=== PATIENT | male | born 1975 | race African-American/Black ===

== ENCOUNTER 2022-02-22 13:32 | Emergency (ER) | payer BC, SELFPAY ==
[2022-02-22 13:36] VITALS: BP 145/101; PULSE 55; RESP 20; TEMP 36.5; O2SAT 100
[2022-02-22] MEDS: Ondansetron 4 MG/2 ML VIAL IVP (14:03)
[2022-02-22] MEDS: Normal Saline 1,000 ML 1000 ML IV (14:03)
[2022-02-22 14:11] LABS: Abs Immature Grans 0.01 10^3/uL (0.0-0.06); Absolute Basophil Count 0.01 10^3/uL (0.0-0.2); Absolute Lymphocyte Count 0.78 10^3/uL (1.2-3.4); Absolute Neutrophil Count 3.45 10^3/uL (1.2-6.7); Basophils % 0.2; HCT 38.9 % (40.0-50.0); HGB 13.2 g/dL (13.5-17.5); Immature Grans % 0.2; Lymphocytes % 17.5; MCHC 33.9 % (32.0-36.0); MCV 91 fL (80-95); MPV 10.3 fL (8.0-11.0); Monocytes % 4.5; Neutrophils % 77.6; Platelet Count 283 10^3/uL (130-400); RBC 4.26 10^6/uL (4.36-5.78); RDW-SD 40.7 fL; WBC 4.45 10^3/uL (4.4-10.8)
--- NOTE | 2022-02-22 14:30 | RT.EKG_ITS ---
APPROVED REPORT Exam: Resting ECG Reason for Exam: screening qtc Patient Location: E HR:52 bpm ECG Measurements Heart Rate 52 AXIS NM 155 P 78 QRSd 103 QRS -44 QT 469 T 7 QTc 438 Conclusion Sinus bradycardia. Left anterior fascicular block. Probable left ventricular hypertrophy. Nonspecific T abnormalities, lateral leads...T <-0.10mV, I aVL V5 V6
[2022-02-22 14:34] LABS: ALT 32 U/L (16-63); AST 25 U/L (15-37); Alkaline Phosphatase 58 U/L (46-116); Anion Gap 6.4 mmol/L (3-11); BUN 12 mg/dL (7-18); Bilirubin, Total 0.5 mg/dL (0.2-1.0); CO2 27.6 mmol/L (21.0-32.0); CREATININE 1.1 mg/dL (0.70-1.30); Calcium 9.3 mg/dL (8.5-10.1); Chloride 105 mmol/L (98-107); Glucose 117 mg/dL (74-106); Lipase 75 U/L (73-393); Potassium 3.7 mmol/L (3.5-5.1); Sodium 139 mmol/L (136-145)
--- NOTE | 2022-02-22 14:40 | ED.GENADUL_ITS ---
Discharge Plan Disposition Patient Disposition: STILL A PATIENT Discharge Details Chief Complaint: Nausea/Vomit/Diar Primary Care Provider: Unknown,Unknown ED Provider: Guillermo Dodson Medical Decision Making 46-year-old male history of cyclic vomiting, occasional marijuana use, Japanese food consumption this morning, presents with nausea vomiting abdominal cramping upper nature, no diarrhea no past surgical history, abdomen soft nontender nondistended appears uncomfortable. Consider foodborne illness versus cyclic vomiting versus biliary colic versus cannabinoid hyperemesis versus less likely cholecystitis or appendicitis. Fluids antiemetics analgesia. Given past med ical history of cyclic vomiting will obtain EKG and trial low-dose droperidol. HPI General Date/Time Provider Initiated Documentation: 02/22/22 13:38 . HPI Narrative: 46-year-old male history of cyclic vomiting, occasional marijuana use, presents with nausea vomiting abdominal cramping upper nature over the past several hours in the setting of eating Japanese food earlier this morning. Nausea and vomiting no diarrhea. No surgical history. Related Data Allergies Allergy/AdvReac Type Severity Reaction Status Date / Time No Known Allergies Allergy Unverified 02/22/22 14:07 General Stated Complaint: Nausea/Vomit/Diar JOSE FRANCISCO: 3 Review of Systems Narrative: Review of Systems Constitutional: negative Eyes: negative ENT: negative Cardiovascular: negative Respiratory: negative Gastrointestinal: Nausea vomiting abdominal cramping : negative Musculoskeletal: negative Skin: negative Neurologic: negative Psych: negative PFSH Social History Smoking risk assessment performed?: No Alcohol Intake: current Alcohol Intake frequency: holidays/special occasions only Drug use: Occasionally Substance use type: marijuana Exam Narrative Exam Narrative: Physical Examination General: alert, awake, cooperative, moderately uncomfortable HEENT: normocephalic, atraumatic; PERRL, EOM intact, conjunctiva normal; no nasal discharge; moist mucous membranes, oral and pharyngeal mucosa normal, tolerating secretions Neck: supple, trachea midline; full ROM Chest: normal to inspection Respiratory: normal respiratory effort, speaking in full sentences, clear to au scultation, no wheezing, rales or rhonchi Cardiac: regular rate, regular rhythm, S1S2 intact, no murmurs rubs or gallops GI: abdomen soft, non-tender, non-distended; no palpable mass or hepatospleno megaly Skin: no lesions, rashes or trauma appreciated Neuro: AAOx3, normal speech, moving all extremities Psych: Appropriate mood and affect Course Vital Signs Vital signs: Vital Signs Temperature 36.5 C 02/22/22 13:36 Pulse 55 L 02/22/22 13:36 Respiratory Rate 02/22/22 13:36 Blood Pressure 145/101 H 02/22/22 13:36 Pulse Oximetry 100 02/22/22 13:36 Temperature 36.5 C 02/22/22 13:36 Temperature Source Oral 02/22/22 13:36 Pulse 55 L 02/22/22 13:36 Respiratory Rate 20 02/22/22 13:36 Respiratory Effort Non-Labored 02/22/22 13:38 Blood Pressure 145/101 H 02/22/22 13:36 Blood Pressure Position Sitting 02/22/22 13:36 Pulse Oximetry 100 02/22/22 13:36 Oxygen Delivery Method Room Air 02/22/22 13:36 Oxygen Flow Rate 0 02/22/22 13:36 Lab/Test Results Lab/Test Results: Laboratory Tests Range/Units 02/22/22 02/22/22 14:00 14:00 WBC (4.4-10.8) 10^3/uL 4.45 RBC (4.36-5.78) 10^6/uL 4.26 L Hgb (13.5-17.5) g/dL 13.2 L Hct (40.0-50.0) % 38.9 L MCV (80-95) fL 91 MCH (27.0-33.0) pg 31.0 MCHC (32.0-36.0) % 33.9 RDW (11.8-14.1) % 12.0 Plt Count (130-400) 10^3/uL 283 MPV (8.0-11.0) fL 10.3 Immature Gran % 0.2 Neutrophils % 77.6 Lymphocytes % 17.5 Monocytes % 4.5 Eosinophils % 0.0 Basophils % 0.2 Nucleated RBC % (0.0-0.3) % 0.0 Absolute Neutrophils (1.2-6.7) 10^3/uL 3.45 Absolute Lymphocytes (1.2-3.4) 10^3/uL 0.78 L Absolute Monocytes (0.1-0.8) 10^3/uL 0.20 Absolute Eosinophils (0.0-0.7) 10^3/uL 0.00 Absolute Basophils (0.0-0.2) 10^3/uL 0.01 Sodium (136-145) mmol/L 139 Potassium (3.5-5.1) mmol/L 3.7 Chloride (98-107) mmol/L 105 Carbon Dioxide (21.0-32.0) mmol/L 27.6 Anion Gap (3-11) mmol/L 6.4 BUN (7-18) mg/dL 12 Creatinine (0.70-1.30) mg/dL 1.1 Estimated GFR/1.73 m2 (mL/min/1.73m2) >= 60.00 Glucose (74-106) mg/dL 117 H Calcium (8.5-10.1) mg/dL 9.3 Total Bilirubin (0.2-1.0) mg/dL 0.5 AST (15-37) U/L 25 ALT (16-63) U/L 32 Alkaline Phosphatase (46-116) U/L 58 Total Protein (6.4-8.2) g/dL 8.0 Albumin (3.4-5.0) g/dL 4.0 Lipase (73-393) U/L 75
[2022-02-22] MEDS: Droperidol 5 MG/2 ML VIAL 1.25 MG IVP ×2 (15:13→16:01)
[2022-02-22] MEDS: Famotidine 20 MG/2 ML VIAL IVP (15:13)
[2022-02-22 15:30] LABS: Troponin I < 50 ng/L (<or=60)
[2022-02-22] MEDS: Dicyclomine 20 MG TAB PO (16:40)
[2022-02-22 16:48] LABS: Bilirubin Negative (Negative); Blood Negative (Negative); Clarity Clear (Clear); Glucose Negative (Negative); Ketones 80 mg/dL (Negative); Leukocyte Esterase Negative (Negative); Nitrite Negative (Negative); Specific Gravity >= 1.030 (1.005-1.025); Urobilinogen 0.2 EU/dL (Up TO 0.2); pH 6.5 (5-8)
[2022-02-22 16:58] LABS: Bacteria Negative HPF (Negative); Epithelial Cells Rare HPF (Negative); RBC 0-2 HPF (0-2); WBC 0-2 HPF (0-5)
[2022-02-22 16:59] LABS: C & S Indicated? No; Casts Negative LPF (Negative); Crystals Negative HPF (Negative); Mucus Trace (Negative)
[2022-02-22 17:03] LABS: *AMPHETAMINES SCREEN URINE Negative (Negative); *BARBITURATES SCREEN URINE Negative (Negative); *BENZODIAZEPINES SCREEN URINE Negative (Negative); Cannabinoids THC Positive (Negative); Cocaine Screen,Urine Negative (Negative); METHADONE URINE SCREEN Negative (Negative); OPIATES URINE SCREEN Negative (Negative)
[2022-02-22 17:10] LABS: Tricyclic Antidepressants Negative (Negative)
[2022-02-22] MEDS: Ketorolac 15 MG/ML VIAL IVP (18:45)
[2022-02-22] MEDS: ACETAMINOPHEN 1,000 MG/100 ML BTL 400 MG IVPB (18:45)
[2022-02-22 19:51] VITALS: BP 140/80; PULSE 72; RESP 18; TEMP 36.1; O2SAT 99
--- NOTE | 2022-02-22 23:14 | W.EDPROG ---
Date of service: 02/22/22 Time of Service: 23:14 Medical Decision Making Patient was signed out to my colleague Dr. Pooja Rodarte. We are pending reassessment after droperidol. On reassessment the patient's vomiting is completely resolved. Nausea has improved. However he still admits to abdominal achiness. I had a long discussion with the patient, and he states that doc, I need a small dose of Dilaudid, and then I will be good to go. This Is the thing that has taken care of this before. I had a long discussion with the patient regarding how Dilaudid can increase nausea, and can also decrease gastric motility which would likely worsen his symptoms. I did offer Bentyl, Ofirmev and Toradol and the patient accepted this. I did also offer Zofran and a GI cocktail but he refused this. After an extended observation. The patient made it clear that he was able to continue to tolerate fluids and had no further vomiting. Pain was stable. Repeat abdominal assessment shows no signs of an acute surgical abdomen whatsoever. No clinical evidence of distention, obstruction, volvulus, appendicitis, pancreatitis, cholecystitis, or other severe abnormality. Patient stable for discharge. Cardiac work-up stable. Patient stable for discharge. Discussed red flags for which return. I have extensively reviewed the treatment plan and discharge instructions with the patient. I have addressed all patient concerns at this time. The patient was made aware of what symptoms to monitor for that would warrant a return to the emergency department. Discussed the plan with the patient, they demonstrate verbal understanding and agreement with our assessment and plan at this time. The documentation in this chart was dictated using [employer] dictation software. Please excuse any dictation errors. Sign Out Sign Out Data: Sign Out Comment: pending labs, reassess after meds; likely cyclic vomiting v cannabinoid hyperemesis v foodborne illness Last updated by Guillermo Dodson MD at 02/22/22 15:45 Discharge Plan Disposition Patient Disposition: HOME Condition: Good Discharge Details Clinical Impression: Cyclic vomiting syndrome Primary Care Provider: Unknown,Unknown ED Provider: Santana Knox Discharge Instructions Instructions: Cyclic Vomiting Syndrome (ED) Additional Instructions: At this time your laboratory work-up is reassuring. There is no signs of heart abnormality. Your pancreas function is normal. You were dehydrated and we have been able to rehydrate you. As we discussed together in depth your symptoms will likely continue to improve over the next 12 to 20 hours. If you notice any worsening of your symptoms, or any new symptoms such as vomiting, diarrhea, fever, chills, shortness of breath, chest pain, numbness, weakness, or fainting , please return immediately to the emergency department for reevaluation. Please follow up with your primary care provider as soon as possible for reassessment and reevaluation. As always, it was a pleasure participating in your medical care today.
== END 2022-02-22 19:52 | disposition home or self-care (01) ==
PROVIDERS: Emergency Medicine; Emergency Provider Student in an Organized Health Care Education/Training Program
DX: R11.15 Cyclical vomiting syndrome unrelated to migraine (principal)
CPT/HCPCS: 36415; 80053; 80307; 83690; 93005; 96361; 96365; 96375; 96376; 99284; 81003; 81015; 84484; 85025; 93010; J0131; J1790; J1885; J2405